=== PATIENT | female | born 1960 | race Caucasian/White ===

== ENCOUNTER 2020-02-22 15:39 | Emergency (ER) | payer BC ==
[2020-02-22] MEDS ORDERED: Ondansetron PF 4 MG/2 ML Vial ONE ×2 (16:32→18:58)
--- NOTE | 2020-02-22 16:34 | RAD ---
Chest one view HISTORY: Dyspnea. FINDINGS: Cardiac silhouette and pulmonary vasculature are unremarkable. Mediastinum is midline. Subtle ill-defined patchy groundglass opacity projects over the lung bases. No evidence of pneumothorax. IMPRESSION : Subtle patchy bibasilar infiltrates. Correlate for multifocal viral pneumonitis.
[2020-02-22 16:38] LABS: #Lymphocytes 0.8 thou/uL (1.20-3.40); #Monocytes 0.4 thou/uL (0.11-0.59); #Neutrophils 3.7 thou/uL (1.40-6.50); %Basophils 0.5 % (0.0-1.0); %Eosinophils 0.1 % (0.0-10.0); %Lymphocytes 16.8 % (21.0-51.0); %Monocytes 7.4 % (0.0-10.0); %Neutrophils 75.2 % (42.0-75.0); Hemoglobin 14.6 g/dL (12.0-16.0); Mean Corpuscular HGB CONC 33.4 g/dL (32.0-36.0); Mean Corpuscular Hemoglobin 28.9 pg (27.0-31.0); Mean Corpuscular Volume 86.3 fL (78.0-98.0); Mean Platelet Volume 7.7 fL (7.4-10.4); Platelet Count 196 thou/uL (130-400); RBC Distribution Width 11.6 % (11.5-14.5); Red Blood Cell (RBC) Count 5.05 mill/uL (4.20-5.40); White Blood Cell (WBC) Count 4.9 thou/uL (4.8-10.8)
[2020-02-22 16:44] LABS: PTT 26.7 sec (22.9-36.1)
[2020-02-22 17:01] LABS: ALT (SGPT) 55 U/L (8-55); AST (SGOT) 40 U/L (5-34); Albumin 3.9 g/dL (3.5-5.0); Alkaline Phosphatase 65 U/L (40-110); Anion Gap 14 mmol/L (10-20); BUN (Urea Nitrogen) 8 mg/dL (9.8-20.1); Bilirubin, Total 0.5 mg/dL (0.2-1.2); Calc. Creatinine Clearance 0 mL/min (70-130); Calcium 8.6 mg/dL (7.8-10.44); Carbon Dioxide 23 mmol/L (22-29); Chloride 107 mmol/L (98-107); Globulin 3.5 g/dL (2.4-3.5); Glucose 169 mg/dL (70-105); Potassium 3.3 mmol/L (3.5-5.1); Protein, Total 7.4 g/dL (6.0-8.3); Sodium 141 mmol/L (136-145)
[2020-02-22 17:17] LABS: Bacteria/HPF None Seen HPF (None Seen); Bilirubin Negative (Negative); Blood, Urine Negative (Negative); Clarity Clear (Clear); Glucose, Urine (Dipstick) 200 mg/dL (Negative); Ketone, Urine 100 mg/dL (Negative); Leukocyte 75 Leu/uL (Negative); Nitrite Negative (Negative); Protein, Urine (Dipstick) 50 mg/dL (Neg-Trace); RBC/HPF 0-3 HPF (0-3); Specific Gravity, Urine 1.033 (1.002-1.036); Urobilinogen Normal mg/dL (Less than 2)
[2020-02-22] MEDS ORDERED: Dexamethasone 4 mg/ml Vial ONE (18:25)
[2020-02-22] MEDS ORDERED: Azithromycin 500 MG VIAL ONE (18:25)
--- NOTE | 2020-02-25 10:09 | EKG ---
Test Reason : Blood Pressure : / mmHG Vent. Rate : 087 BPM Atrial Rate : 087 BPM P-R Int : 122 ms QRS Dur : 064 ms QT Int : 342 ms P-R-T Axes : 036 025 032 degrees QTc Int : 411 ms Normal sinus rhythm Normal ECG Baseline Artifact Present Confirmed by CARLITOS TAPIA, MEGAN Mar ([id number]), avid editor MANUEL SPARKS ([id number]) on 02/25/2020 10:09:39 AM Referred By: Confirmed By:MEGAN URBINA MD
== END 2020-02-22 19:39 | disposition home or self-care (01) ==
LOC: ERS 15:39
DX: U07.1 COVID-19 (principal); E86.0 Dehydration; E11.9 Type 2 diabetes mellitus without complications; Z79.84 Long term (current) use of oral hypoglycemic drugs
CPT/HCPCS: 71045; 80053; 81003; 81015; 83605; 85025; 85610; 85652; 85730; 86140; 93005; 94760; 96365; 96375; 96376; J0456; J1100; J2405

== ENCOUNTER 2021-07-18 08:49 | Emergency (ER) | payer BC ==
[2021-07-18] MEDS ORDERED: Ondansetron ODT 4 MG TAB ONE (10:00)
== END 2021-07-18 10:10 | disposition home or self-care (01) ==
LOC: ERS 08:49
DX: J06.9 Acute upper respiratory infection, unspecified (principal); E11.9 Type 2 diabetes mellitus without complications; Z79.84 Long term (current) use of oral hypoglycemic drugs; Z79.899 Other long term (current) drug therapy
CPT/HCPCS: 71045; Q0162

== ENCOUNTER 2022-03-26 13:53 | Outpatient (CLI) | payer BC | END 2022-03-26 13:54 | disposition home or self-care (01) | LOC: BICULT 13:53 | PROVIDERS: ATTEND Family Medicine | DX: R94.6 Abnormal results of thyroid function studies (principal); E04.2 Nontoxic multinodular goiter | CPT/HCPCS: 76536 ==

== ENCOUNTER 2022-05-20 12:39 | Day surgery (SDC) | payer BC ==
[2022-05-19 08:25] VITALS: BMI 38.2
[2022-05-20 14:36] VITALS: BP 136/75; TEMP 98.4
== END 2022-05-20 14:15 | disposition home or self-care (01) ==
LOC: ULT 12:39
PROVIDERS: ATTEND Otolaryngology Plastic Surgery within the Head & Neck
PROC: 0G9G3ZX Drainage of Left Thyroid Gland Lobe, Percutaneous Approach, Diagnostic (ICD-10-PCS; principal; 2022-05-20)
PROC: 0G9H3ZX Drainage of Right Thyroid Gland Lobe, Percutaneous Approach, Diagnostic (ICD-10-PCS; principal; 2022-05-20)
DX: E04.2 Nontoxic multinodular goiter (principal); Z79.84 Long term (current) use of oral hypoglycemic drugs; Z79.899 Other long term (current) drug therapy; Z88.2 Allergy status to sulfonamides
CPT/HCPCS: 10005; 10006; 88173; 88305

== ENCOUNTER 2022-06-06 09:37 | Outpatient (CLI) | payer BC ==
[2022-06-06 11:47] LABS: Anion Gap 14 mmol/L (10-20); BUN (Urea Nitrogen) 14 mg/dL (9.8-20.1); Calc. Creatinine Clearance 0 mL/min (70-130); Calcium 9.6 mg/dL (7.8-10.44); Carbon Dioxide 23 mmol/L (23-31); Chloride 105 mmol/L (98-107); Estimated GFR 83; Glucose 168 mg/dL (80-115); Potassium 4.1 mmol/L (3.5-5.1); Sodium 138 mmol/L (136-145)
== END 2022-06-06 09:38 | disposition home or self-care (01) ==
LOC: LABBT 09:37
PROVIDERS: ATTEND Otolaryngology Plastic Surgery within the Head & Neck
DX: Z01.818 Encounter for other preprocedural examination (principal); E07.89 Other specified disorders of thyroid
CPT/HCPCS: 80048; 85014; 93005; 93010

== ENCOUNTER 2022-06-11 08:46 | Day surgery (SDC) | payer BC ==
[2022-06-06 11:15] VITALS: BMI 38.2
[2022-06-11] MEDS ORDERED: Lidocaine 1% (PF) 30 ML VIAL ONE (10:52)
[2022-06-11] MEDS ORDERED: fentaNYL PF 100 MCG/2 ML SYRINGE ONE (10:56)
[2022-06-11] MEDS ORDERED: Dexamethasone 20 MG/5 ML VIAL ONE (11:00)
[2022-06-11] MEDS ORDERED: PROPOFOL 200 MG/20 ML VIAL ONE (11:00)
[2022-06-11] MEDS ORDERED: Ondansetron PF 4 MG/2 ML Vial ONE (11:00)
[2022-06-11] MEDS ORDERED: PHENYLEPHRINE-NS 100 MCG/ML 10 ML SYRINGE ONE (11:00)
[2022-06-11] MEDS ORDERED: Lidocaine 1% PF 5 ML VIAL ONE (11:00)
[2022-06-11] MEDS ORDERED: fentaNYL 50 mcg/mL 1 mL Vial ONE (13:29)
== END 2022-06-11 15:07 | disposition home or self-care (01) ==
LOC: SDC 08:46
PROVIDERS: ATTEND Otolaryngology Plastic Surgery within the Head & Neck
PROC: 0GTG0ZZ Resection of Left Thyroid Gland Lobe, Open Approach (ICD-10-PCS; principal; 2022-06-11)
DX: E04.2 Nontoxic multinodular goiter (principal); I10 Essential (primary) hypertension; E11.9 Type 2 diabetes mellitus without complications; Z79.84 Long term (current) use of oral hypoglycemic drugs; Z79.899 Other long term (current) drug therapy; Z88.2 Allergy status to sulfonamides
CPT/HCPCS: 88307; C1776; J1100; J2001; J2405; J2704; J3010

== ENCOUNTER 2023-07-31 14:38 | Outpatient (CLI) | payer BC | END 2023-07-31 14:39 | disposition home or self-care (01) | LOC: BICMAMMO 14:38 | PROVIDERS: ATTEND Family Medicine | DX: Z13.820 Encounter for screening for osteoporosis (principal); M85.89 Other specified disorders of bone density and structure, multiple sites; Z78.0 Asymptomatic menopausal state | CPT/HCPCS: 77080 ==